=== PATIENT | female | born 1960 | race Caucasian/White ===

== ENCOUNTER 2021-07-08 01:27 | Emergency (ER) | payer MEDICARE, MEDICAID ==
[2021-07-08] MEDS ORDERED: Sodium Chloride 0.9% 10 ML Syringe FLUSH PRN (01:35)
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
[2021-07-08] MEDS ORDERED: Iopamidol 755 Mg/ML 100 ML Bottle IV ONE (02:23)
[2021-07-08 02:24] LABS: CHLORIDE,CL 103 mmol/L (98-107); SODIUM,NA 141 mmol/L (136-145)
[2021-07-08 02:25] LABS: ANION GAP 15.2 mmol/L (5-15)
[2021-07-08] MEDS ORDERED: Take Home: Doxycycline 100 MG Tab, 4 Tab Pack PO ONE (03:46)
[2021-07-08] MEDS ORDERED: Take Home: Acetaminophen/HYDROcodone 325-5 MG, 5 Tab Pack PO ONE (03:46)
--- NOTE | 2021-07-08 08:51 | CR ---
[id number] RAD/RAD Chest PA And Lateral EXAM: RAD Chest PA And Lateral INDICATION: CHEST PAIN FELL 1 WEEK AGO COMPARISON: None. DISCUSSION: Chronic appearing left rib fractures. The heart and lungs are normal in appearance. No pneumothorax or pleural fluid is identified. IMPRESSION: 1. No acute findings. Maicol Shea MD 07/08/21 0850 Thank you for allowing us to participate in the care of your patient.
--- NOTE | 2021-07-08 08:59 | CT ---
[id number] CT/CTA Chest EXAM: CT ANGIOGRAM CHEST INDICATION: CHEST PAIN, ELEVATED D DIMER COMPARISON: None. DISCUSSION: Evaluation is limited by motion artifact. The pulmonary arteries are normal in appearance with no emboli identified. Thoracic aorta is normal in caliber with no aneurysm or dissection. Mild groundglass opacification in the right upper lobe, favor volume loss over infectious or inflammatory process. Mild bronchial wall thickening suggests underlying bronchitis. No acute infiltrates.No pleural or pericardial effusion. Normal heart size. No mediastinal, hilar or axillary lymphadenopathy. Small sliding type hiatus hernia. Nonspecific 12 mm hypodensity in the right lobe of the liver. The imaged upper abdomen is otherwise unremarkable. There are multiple chronic bilateral rib fractures. A mildly displaced right seventh rib fracture appears likely acute. IMPRESSION: 1. No large or central pulmonary embolism. 2. Minor nonspecific groundglass opacities right upper lobe, favor volume loss over infectious or inflammatory process. 3. Acute anterior right seventh rib fracture. Maciol Shea MD 07/08/21 0858 Thank you for allowing us to participate in the care of your patient.
== END 2021-07-08 04:00 | disposition home or self-care (01) ==
LOC: VM.ED 01:27
DX: S22.31XA Fracture of one rib, right side, initial encounter for closed fracture (principal); J18.9 Pneumonia, unspecified organism; I25.10 Atherosclerotic heart disease of native coronary artery without angina pectoris; I10 Essential (primary) hypertension; J44.9 Chronic obstructive pulmonary disease, unspecified; E03.9 Hypothyroidism, unspecified; E66.9 Obesity, unspecified; Z68.41 Body mass index [BMI] 40.0-44.9, adult; Z88.2 Allergy status to sulfonamides; Z79.899 Other long term (current) drug therapy; W00.0XXA Fall on same level due to ice and snow, initial encounter
CPT/HCPCS: 36415; 71045; 71275; 80053; 83735; 83880; 84100; 84484; 85025; 85379; 85610; 86140; 93005; 93010; 99284; 99284-25; A9270-GY; Q9967

== ENCOUNTER 2022-10-13 17:50 | Emergency (ER) | payer MEDICARE, MEDICAID ==
[2022-10-13] MEDS ORDERED: Take Home: Acetaminophen/HYDROcodone 325-5 MG, 5 Tab Pack PO ONE (20:40)
== END 2022-10-13 20:51 | disposition home or self-care (01) ==
LOC: VM.ED 17:50
DX: S22.41XA Multiple fractures of ribs, right side, initial encounter for closed fracture (principal); I25.10 Atherosclerotic heart disease of native coronary artery without angina pectoris; E78.00 Pure hypercholesterolemia, unspecified; I10 Essential (primary) hypertension; J44.9 Chronic obstructive pulmonary disease, unspecified; K21.9 Gastro-esophageal reflux disease without esophagitis; E03.9 Hypothyroidism, unspecified; E66.9 Obesity, unspecified; Z88.2 Allergy status to sulfonamides; Z79.899 Other long term (current) drug therapy; W18.30XA Fall on same level, unspecified, initial encounter
CPT/HCPCS: 70450; 71101; 99284; A9270; 99283

== ENCOUNTER 2023-04-08 21:12 | Emergency (ER) | payer MEDICARE, MEDICAID ==
[2023-04-08] MEDS ORDERED: methylPREDNISolone Sodium Succinate 125 MG/2 ML SDV IVPUSH ONE (21:27)
[2023-04-08] MEDS ORDERED: Albuterol/Ipratropium 3.0-0.5 MG/3 ML Neb Soln NEB ONE (21:27)
[2023-04-08] MEDS ORDERED: Sodium Chloride 0.9% 10 ML Syringe FLUSH PRN (21:27)
[2023-04-08 21:42] LABS: BASOPHILS PERCENT AUTO 0.2 % (0.2-1.2); EOSINOPHILS ABSOLUTE AUTO 0.7 x10^3/uL (0.0-0.5); EOSINOPHILS PERCENT AUTO 5.3 % (0.0-4.0); HEMATOCRIT 42.4 % (33.0-47.0); IMMATURE GRAN ABSOLUTE AUTO 0.03 x10^3/uL (0.00-0.07); LYMPHOCYTES ABSOLUTE AUTO 4.1 x10^3/uL (1.0-4.8); LYMPHOCYTES PERCENT AUTO 31.6 % (25.0-50.0); MEAN CORPUSCULAR HEMOGLOBIN 28.4 pg (26.0-32.0); MONOCYTES ABSOLUTE AUTO 0.9 x10^3/uL (0.0-0.8); MONOCYTES PERCENT AUTO 7.1 % (2.0-11.0); NEUTROPHILS ABSOLUTE AUTO 7.2 x10^3/uL (1.8-7.7); NEUTROPHILS PERCENT AUTO 55.6 % (50.0-80.0); PLATELET COUNT,PLT 373 x10^3/uL (130-400); RED BLOOD CELL COUNT 4.93 x10^6/uL (4.00-5.50); WHITE BLOOD CELL COUNT,WBC 12.9 x10^3/uL (4.0-10.0)
[2023-04-08 22:05] LABS: A/G RATIO 0.86; ALANINE AMINOTRANSFERASE,ALT 57 U/L (14-59); ALBUMIN 3.6 g/dL (3.4-5.0); ALKALINE PHOSPHATASE 125 U/L (46-116); ASPARTATE AMNIOTRANSFERASE,AST 30 U/L (15-37); BILIRUBIN TOTAL 0.2 mg/dL (0.2-1.0); BLOOD UREA NITROGEN,BUN 10 mg/dL (7-18); CALCIUM 9.3 mg/dL (8.5-10.1); CARBON DIOXIDE,CO2 29 mmol/L (21-32); CHLORIDE,CL 101 mmol/L (98-107); GLUCOSE RANDOM 133 mg/dL (70-99); POTASSIUM,K 3.6 mmol/L (3.5-5.1); PROTEIN TOTAL,TP 7.8 g/dL (6.4-8.2); SODIUM,NA 140 mmol/L (136-145)
[2023-04-08 22:07] LABS: ANION GAP 13.6 mmol/L (5-15); ESTIMATED GFR 64 mL/min (>=60)
[2023-04-08] MEDS ORDERED: cefTRIAXone 1 GM Vial IVPUSH ONE (22:53)
[2023-04-08 23:22] LABS: PRO B-TYPE NATRIUR PEPT,BNPPRO 109 pg/mL (<=125)
== END 2023-04-08 23:13 | disposition home or self-care (01) ==
LOC: VM.ED 21:12
DX: J43.1 Panlobular emphysema (principal); J18.9 Pneumonia, unspecified organism; I25.10 Atherosclerotic heart disease of native coronary artery without angina pectoris; E78.00 Pure hypercholesterolemia, unspecified; I10 Essential (primary) hypertension; K21.9 Gastro-esophageal reflux disease without esophagitis; E03.9 Hypothyroidism, unspecified; E66.9 Obesity, unspecified; Z68.30 Body mass index [BMI] 30.0-30.9, adult; Z88.2 Allergy status to sulfonamides; Z79.899 Other long term (current) drug therapy; Z91.148 Patient's other noncompliance with medication regimen for other reason
CPT/HCPCS: 36415; 71045; 80053; 83880; 84484; 85025; 93005; 93010; 94640; 96374; 96375; 99284; 99285-25; J0696; J2930; J3490; J7620-GY

== ENCOUNTER 2023-04-12 04:57 | Inpatient (IN) | payer MEDICARE, MEDICAID ==
[2023-04-12] MEDS ORDERED: Albuterol/Ipratropium 3.0-0.5 MG/3 ML Neb Soln NEB ONE (05:12)
[2023-04-12] MEDS ORDERED: methylPREDNISolone Sodium Succinate 125 MG/2 ML SDV IVPUSH ONE (05:15)
[2023-04-12 05:33] LABS: BASOPHILS PERCENT AUTO 0.4 % (0.2-1.2); EOSINOPHILS PERCENT AUTO 8.6 % (0.0-4.0); HEMATOCRIT 41.2 % (33.0-47.0); HEMOGLOBIN 13.8 g/dL (12.0-16.0); IMMATURE GRAN ABSOLUTE AUTO 0.04 x10^3/uL (0.00-0.07); LYMPHOCYTES ABSOLUTE AUTO 3.2 x10^3/uL (1.0-4.8); LYMPHOCYTES PERCENT AUTO 27.9 % (25.0-50.0); MEAN CORPUSCULAR HEMOGLOBIN 28.9 pg (26.0-32.0); MEAN CORPUSCULAR HGB CONC 33.5 g/dL (32.0-36.0); MEAN CORPUSCULAR VOLUME 86.2 fL (78.0-93.0); MONOCYTES ABSOLUTE AUTO 0.9 x10^3/uL (0.0-0.8); MONOCYTES PERCENT AUTO 7.9 % (2.0-11.0); NEUTROPHILS ABSOLUTE AUTO 6.2 x10^3/uL (1.8-7.7); NEUTROPHILS PERCENT AUTO 54.8 % (50.0-80.0); PLATELET COUNT,PLT 355 x10^3/uL (130-400); RED BLOOD CELL COUNT 4.78 x10^6/uL (4.00-5.50); WHITE BLOOD CELL COUNT,WBC 11.3 x10^3/uL (4.0-10.0)
[2023-04-12 05:55] LABS: A/G RATIO 0.92; ALBUMIN 3.4 g/dL (3.4-5.0); BILIRUBIN TOTAL 0.1 mg/dL (0.2-1.0); C-REACTIVE PROTEIN 0.59 mg/dL (<=0.30); CREATININE 1.1 mg/dL (0.55-1.02); EST CRCL DRUG DOSING (CG) 54.18 mL/min; POTASSIUM,K 3.7 mmol/L (3.5-5.1); PROTEIN TOTAL,TP 7.1 g/dL (6.4-8.2)
[2023-04-12 05:56] LABS: ANION GAP 12.7 mmol/L (5-15)
[2023-04-12] MEDS ORDERED: cefTRIAXone 1 GM Vial IVPUSH ONE (06:24)
[2023-04-12] MEDS ORDERED: Furosemide 20 MG Tab PO PRN (09:27)
[2023-04-12] MEDS ORDERED: Non-Formulary Medication 1 Each (Cetirizine [Zyrtec] 10 MG Tablet) PO SCH (09:30)
[2023-04-12] MEDS ORDERED: Mupirocin Oint 22 GM Tube TOP SCH (09:30)
[2023-04-12] MEDS ORDERED: amLODIPine 5 MG Tab PO SCH (09:30)
[2023-04-12] MEDS ORDERED: Triamcinolone Acetonide 0.1% Crm 15 GM Tube TOP SCH (09:30)
[2023-04-12] MEDS ORDERED: Sertraline 50 MG Tab PO SCH (09:30)
[2023-04-12] MEDS ORDERED: Metoprolol Succinate 25 MG Tab.ER PO SCH (09:30)
[2023-04-12] MEDS ORDERED: Ezetimibe 10 MG Tab PO SCH (09:30)
[2023-04-12] MEDS ORDERED: Venlafaxine 150 MG Cap.ER PO SCH (09:30)
[2023-04-12 10:25] LABS: MAGNESIUM 2.2 mg/dL (1.8-2.4); TSH ULTRASENSITIVE 2.089 uIU/mL (0.358-3.74)
[2023-04-12] MEDS ORDERED: Sertraline 100 MG Tab PO SCH (10:45)
[2023-04-12] MEDS: Azithromycin 500 MG in Sodium Chloride 0.9% 250 ML IV SCH (10:57)
[2023-04-12] MEDS: Triamcinolone Acetonide 0.1% Crm 15 GM Tube TOP SCH ×2 (10:58→21:41)
[2023-04-12] MEDS: Mupirocin Oint 22 GM Tube TOP SCH ×2 (10:58→21:42)
[2023-04-12] MEDS: Albuterol/Ipratropium 3.0-0.5 MG/3 ML Neb Soln NEB SCH ×4 (10:59→22:21)
[2023-04-12] MEDS: Loratadine 10 MG Tab PO SCH (10:59)
[2023-04-12] MEDS: Ezetimibe 10 MG Tab PO SCH (10:59)
[2023-04-12] MEDS: Venlafaxine 150 MG Cap.ER PO SCH (11:00)
[2023-04-12] MEDS: amLODIPine 5 MG Tab PO SCH (11:05)
[2023-04-12] MEDS: Metoprolol Succinate 25 MG Tab.ER PO SCH (11:06)
[2023-04-12] MEDS: Sertraline 100 MG Tab PO SCH (11:24)
[2023-04-12] MEDS: methylPREDNISolone Sodium Succinate 40 MG/1 ML SDV IVPUSH SCH ×2 (14:42→21:42)
[2023-04-12 20:32] LABS: APPEARANCE,URINE CLEAR (CLEAR); BILIRUBIN,URINE NEGATIVE (NEGATIVE); COLOR,URINE YELLOW (YELLOW); GLUCOSE,URINE NEGATIVE (NEGATIVE); KETONES,URINE NEGATIVE (NEGATIVE); LEUKOCYTE ESTERASE,URINE NEGATIVE (NEGATIVE); NITRITE,URINE NEGATIVE (NEGATIVE); OCCULT BLOOD,URINE NEGATIVE (NEGATIVE); PROTEIN,URINE 30 mg/dL (NEGATIVE); UROBILINOGEN,URINE 0.2 EU/dL (0.2)
[2023-04-12 20:36] LABS: AMPHETAMINES SCREEN, URINE POSITIVE (NEGATIVE); BARBITURATE SCREEN,URINE NEGATIVE (NEGATIVE)
[2023-04-12 20:37] LABS: BENZODIAZEPINES SCREEN,URINE NEGATIVE (NEGATIVE); BUPRENORPHINE SCREEN,URINE NEGATIVE (NEGATIVE); COCAINE METABOLITES,URINE NEGATIVE (NEGATIVE); METHADONE SCREEN, URINE NEGATIVE (NEGATIVE); METHAMPHETAMINE SCREEN, URINE POSITIVE (NEGATIVE); OXYCODONE SCREEN,URINE NEGATIVE (NEGATIVE); PCP SCREEN,URINE NEGATIVE (NEGATIVE); THC SCREEN,URINE 50 NG/ML POSITIVE (NEGATIVE)
[2023-04-12 20:41] LABS: BACTERIA,URINE OCCASIONAL /HPF (NOT SEEN); MUCUS,URINE OCCASIONAL /LPF (NOT SEEN); RBC,URINE 0-5 /HPF (NOT SEEN); SQUAMOUS EPITHELIAL CELLS,UR OCCASIONAL /HPF (NOT SEEN); WBC,URINE 0-5 /HPF (NOT SEEN)
[2023-04-12] MEDS: Albuterol/Ipratropium 3.0-0.5 MG/3 ML Neb Soln NEB PRN (21:42)
[2023-04-13] MEDS: Albuterol/Ipratropium 3.0-0.5 MG/3 ML Neb Soln NEB SCH ×6 (02:48→22:21)
[2023-04-13] MEDS: Levothyroxine 150 MCG Tab PO SCH (06:48)
[2023-04-13] MEDS: methylPREDNISolone Sodium Succinate 40 MG/1 ML SDV IVPUSH SCH ×3 (06:48→22:21)
[2023-04-13] MEDS: Albuterol/Ipratropium 3.0-0.5 MG/3 ML Neb Soln NEB PRN (06:52)
[2023-04-13 08:10] LABS: BASOPHILS PERCENT AUTO 0.1 % (0.2-1.2); HEMATOCRIT 40.2 % (33.0-47.0); HEMOGLOBIN 13.4 g/dL (12.0-16.0); IMMATURE GRAN ABSOLUTE AUTO 0.14 x10^3/uL (0.00-0.07); LYMPHOCYTES ABSOLUTE AUTO 1.7 x10^3/uL (1.0-4.8); LYMPHOCYTES PERCENT AUTO 10.3 % (25.0-50.0); MEAN CORPUSCULAR HEMOGLOBIN 28.5 pg (26.0-32.0); MEAN CORPUSCULAR HGB CONC 33.3 g/dL (32.0-36.0); MEAN CORPUSCULAR VOLUME 85.4 fL (78.0-93.0); MONOCYTES PERCENT AUTO 5.8 % (2.0-11.0); NEUTROPHILS ABSOLUTE AUTO 13.7 x10^3/uL (1.8-7.7); PLATELET COUNT,PLT 382 x10^3/uL (130-400); RED BLOOD CELL COUNT 4.71 x10^6/uL (4.00-5.50); WHITE BLOOD CELL COUNT,WBC 16.6 x10^3/uL (4.0-10.0)
[2023-04-13 08:45] LABS: A/G RATIO 0.86; ALBUMIN 3.1 g/dL (3.4-5.0); ANION GAP 12.7 mmol/L (5-15); BILIRUBIN TOTAL 0.2 mg/dL (0.2-1.0); CALCIUM 9.5 mg/dL (8.5-10.1); CREATININE 0.9 mg/dL (0.55-1.02); EST CRCL DRUG DOSING (CG) 66.22 mL/min; POTASSIUM,K 3.7 mmol/L (3.5-5.1); PROTEIN TOTAL,TP 6.7 g/dL (6.4-8.2)
[2023-04-13] MEDS: cefTRIAXone 1 GM Vial IVPUSH SCH (08:49)
[2023-04-13] MEDS: Loratadine 10 MG Tab PO SCH (08:50)
[2023-04-13] MEDS: Azithromycin 500 MG in Sodium Chloride 0.9% 250 ML IV SCH (08:50)
[2023-04-13] MEDS: Ezetimibe 10 MG Tab PO SCH (08:50)
[2023-04-13] MEDS: Sertraline 100 MG Tab PO SCH (08:51)
[2023-04-13] MEDS: Venlafaxine 150 MG Cap.ER PO SCH (08:51)
[2023-04-13] MEDS: amLODIPine 5 MG Tab PO SCH (08:56)
[2023-04-13] MEDS: Metoprolol Succinate 25 MG Tab.ER PO SCH (08:56)
[2023-04-13] MEDS: Triamcinolone Acetonide 0.1% Crm 15 GM Tube TOP SCH ×2 (08:58→20:15)
[2023-04-13] MEDS: Mupirocin Oint 22 GM Tube TOP SCH ×2 (08:58→20:13)
[2023-04-13] MEDS: DEXTROAMPHETAMINE PO SCH ×2 (12:46→18:13)
[2023-04-13] MEDS: AMPHETAMINE PO SCH ×2 (12:46→18:13)
[2023-04-14] MEDS: Albuterol/Ipratropium 3.0-0.5 MG/3 ML Neb Soln NEB SCH ×6 (02:33→22:12)
[2023-04-14] MEDS: methylPREDNISolone Sodium Succinate 40 MG/1 ML SDV IVPUSH SCH ×3 (06:32→22:12)
[2023-04-14] MEDS: Levothyroxine 150 MCG Tab PO SCH (06:32)
[2023-04-14 07:01] LABS: HEMATOCRIT 41.7 % (33.0-47.0); HEMOGLOBIN 13.6 g/dL (12.0-16.0); IMMATURE GRAN ABSOLUTE AUTO 0.22 x10^3/uL (0.00-0.07); LYMPHOCYTES ABSOLUTE AUTO 1.4 x10^3/uL (1.0-4.8); LYMPHOCYTES PERCENT AUTO 7.2 % (25.0-50.0); MEAN CORPUSCULAR HGB CONC 32.6 g/dL (32.0-36.0); MONOCYTES ABSOLUTE AUTO 1.1 x10^3/uL (0.0-0.8); MONOCYTES PERCENT AUTO 5.6 % (2.0-11.0); NEUTROPHILS ABSOLUTE AUTO 16.2 x10^3/uL (1.8-7.7); PLATELET COUNT,PLT 423 x10^3/uL (130-400); RED BLOOD CELL COUNT 4.85 x10^6/uL (4.00-5.50)
[2023-04-14 07:12] LABS: WHITE BLOOD CELL COUNT,WBC 18.8 x10^3/uL (4.0-10.0)
[2023-04-14 07:28] LABS: A/G RATIO 0.77; ALBUMIN 3.3 g/dL (3.4-5.0); ANION GAP 11.8 mmol/L (5-15); BILIRUBIN TOTAL 0.1 mg/dL (0.2-1.0); CALCIUM 9.6 mg/dL (8.5-10.1); EST CRCL DRUG DOSING (CG) 59.83 mL/min; POTASSIUM,K 3.8 mmol/L (3.5-5.1); PROTEIN TOTAL,TP 7.6 g/dL (6.4-8.2)
[2023-04-14] MEDS: DEXTROAMPHETAMINE PO SCH ×2 (08:35→18:10)
[2023-04-14] MEDS: amLODIPine 5 MG Tab PO SCH (08:35)
[2023-04-14] MEDS: AMPHETAMINE PO SCH ×2 (08:35→18:10)
[2023-04-14] MEDS: Venlafaxine 150 MG Cap.ER PO SCH (08:35)
[2023-04-14] MEDS: Metoprolol Succinate 25 MG Tab.ER PO SCH (08:36)
[2023-04-14] MEDS: Loratadine 10 MG Tab PO SCH (08:36)
[2023-04-14] MEDS: Ezetimibe 10 MG Tab PO SCH (08:36)
[2023-04-14] MEDS: Mupirocin Oint 22 GM Tube TOP SCH ×3 (08:37→22:11)
[2023-04-14] MEDS: Triamcinolone Acetonide 0.1% Crm 15 GM Tube TOP SCH ×2 (08:37→22:12)
[2023-04-14] MEDS: Sertraline 100 MG Tab PO SCH (08:39)
[2023-04-14] MEDS: cefTRIAXone 1 GM Vial IVPUSH SCH (08:42)
[2023-04-14] MEDS: Azithromycin 500 MG in Sodium Chloride 0.9% 250 ML IV SCH (08:47)
[2023-04-14] MEDS ORDERED: Calcium Carbonate 750 MG Tab.Chew PO PRN (10:00)
[2023-04-15] MEDS: Albuterol/Ipratropium 3.0-0.5 MG/3 ML Neb Soln NEB SCH ×3 (04:00→11:02)
[2023-04-15] MEDS: Levothyroxine 150 MCG Tab PO SCH (06:39)
[2023-04-15] MEDS: methylPREDNISolone Sodium Succinate 40 MG/1 ML SDV IVPUSH SCH ×2 (06:39→13:19)
[2023-04-15 06:48] LABS: HEMOGLOBIN 13.2 g/dL (12.0-16.0); MEAN CORPUSCULAR HEMOGLOBIN 28.6 pg (26.0-32.0); MEAN CORPUSCULAR HGB CONC 33.8 g/dL (32.0-36.0); MEAN CORPUSCULAR VOLUME 84.6 fL (78.0-93.0); RED BLOOD CELL COUNT 4.61 x10^6/uL (4.00-5.50); WHITE BLOOD CELL COUNT,WBC 16.6 x10^3/uL (4.0-10.0)
[2023-04-15] MEDS: cefTRIAXone 1 GM Vial IVPUSH SCH (08:08)
[2023-04-15] MEDS: Azithromycin 500 MG in Sodium Chloride 0.9% 250 ML IV SCH (08:11)
[2023-04-15] MEDS: Sertraline 100 MG Tab PO SCH (08:16)
[2023-04-15] MEDS: amLODIPine 5 MG Tab PO SCH (08:16)
[2023-04-15] MEDS: Venlafaxine 150 MG Cap.ER PO SCH (08:16)
[2023-04-15] MEDS: Ezetimibe 10 MG Tab PO SCH (08:17)
[2023-04-15] MEDS: Metoprolol Succinate 25 MG Tab.ER PO SCH (08:17)
[2023-04-15] MEDS: Loratadine 10 MG Tab PO SCH (08:17)
[2023-04-15] MEDS: Mupirocin Oint 22 GM Tube TOP SCH (08:18)
[2023-04-15] MEDS: Triamcinolone Acetonide 0.1% Crm 15 GM Tube TOP SCH (08:18)
[2023-04-15] MEDS: AMPHETAMINE PO SCH (08:19)
[2023-04-15] MEDS: DEXTROAMPHETAMINE PO SCH (08:19)
== END 2023-04-15 15:05 | disposition home or self-care (01) | DRG 189 ==
LOC: VM.ED 04:57 → VM.MS 06:20
PROVIDERS: ADMIT Nurse Practitioner Family; ATTEND Family Medicine
DX: J96.01 Acute respiratory failure with hypoxia (principal); F33.9 Major depressive disorder, recurrent, unspecified; J43.1 Panlobular emphysema; I12.9 Hypertensive chronic kidney disease with stage 1 through stage 4 chronic kidney disease, or unspecified chronic kidney disease; E78.2 Mixed hyperlipidemia; E03.9 Hypothyroidism, unspecified; N18.30 Chronic kidney disease, stage 3 unspecified; F41.0 Panic disorder [episodic paroxysmal anxiety]; I25.10 Atherosclerotic heart disease of native coronary artery without angina pectoris; E78.00 Pure hypercholesterolemia, unspecified; K21.9 Gastro-esophageal reflux disease without esophagitis; G47.33 Obstructive sleep apnea (adult) (pediatric); F34.1 Dysthymic disorder; F42.4 Excoriation (skin-picking) disorder; E66.9 Obesity, unspecified; F15.10 Other stimulant abuse, uncomplicated; F43.10 Post-traumatic stress disorder, unspecified; Z88.2 Allergy status to sulfonamides; Z87.891 Personal history of nicotine dependence; Z98.51 Tubal ligation status; Z98.890 Other specified postprocedural states; Z79.899 Other long term (current) drug therapy; Z68.38 Body mass index [BMI] 38.0-38.9, adult
CPT/HCPCS: 36415; 71045; 80053; 80305-QW; 81001; 83605; 83735; 83880; 84443; 85025; 85027; 86140; 94640; 94760; 96374; 99285-25; A9270-GY; J0456; J0696; J2920; J2930; J7050; J7620-GY

== ENCOUNTER 2024-03-07 13:00 | Emergency (ER) | payer MEDICARE, MEDICAID ==
[2024-03-07] MEDS: Lidocaine 1% 10 ML MDV INJECT ONE (14:00)
[2024-03-07] MEDS: Bupivacaine 0.5% 30 ML SDV INJECT ONE (14:00)
[2024-03-07] MEDS: Take Home: Cephalexin 500 MG Cap, 6 Cap Pack PO ONE (14:51)
== END 2024-03-07 14:52 | disposition home or self-care (01) ==
LOC: VM.ED 13:00 → SUPCPDRO 13:00 → VM.ED 14:52
DX: S61.011A Laceration without foreign body of right thumb without damage to nail, initial encounter (principal); I10 Essential (primary) hypertension; E78.00 Pure hypercholesterolemia, unspecified; J44.9 Chronic obstructive pulmonary disease, unspecified; I25.10 Atherosclerotic heart disease of native coronary artery without angina pectoris; K21.9 Gastro-esophageal reflux disease without esophagitis; E03.9 Hypothyroidism, unspecified; E66.9 Obesity, unspecified; Z87.891 Personal history of nicotine dependence; Z79.899 Other long term (current) drug therapy; Z68.41 Body mass index [BMI] 40.0-44.9, adult; W59.81XA Bitten by other nonvenomous reptiles, initial encounter
CPT/HCPCS: 12002; 99283; A9270-GY; J0665; J3490